=== PATIENT | male | born 1995 | race Caucasian/White ===

== ENCOUNTER 2020-06-24 14:59 | Emergency (ER) | payer OTHER ==
[2020-06-24 15:09] VITALS: BP 116/53
[2020-06-24] MEDS ORDERED: BUFFERED LIDOCAINE 10 ML SYRINGE SUBQ STA (15:15)
--- NOTE | 2020-06-24 15:17 | ED Physician Documentation ---
PD HPI UPPER EXT INJURY - Stated complaint Stated Complaint: RT HAND LAC - Chief complaint Chief Complaint: Laceration - History obtained from History obtained from: Patient - Additonal information Additional information: Left-handed gentleman who is up-to-date on tetanus accidentally cut his right hand with an ax while chopping wood at home just prior to arrival. Review of Systems Constitutional: reports: Reviewed and negative Ears: reports: Reviewed and negative GI: denies: Abdominal Pain, Nausea, Vomiting PD PAST MEDICAL HISTORY - Past Surgical History Past Surgical History: No - Present Medications Home Medications: Ambulatory Orders Medication Instructions Recorded Confirmed HYDROcod/ACETAM 5/325 [Vicodin 1 - 2 ea PO Q6H PRN #10 tablet 09/09/13 5/325] No Known Home Medications 09/09/13 09/09/13 - Allergies Allergies/Adverse Reactions: Allergies Allergy/AdvReac Type Severity Reaction Status Date / Time No Known Drug Allergies Allergy Verified 09/09/13 16:35 - Social History Does the pt smoke?: No Smoking Status: Never smoker Does the pt drink ETOH?: No Does the pt have substance abuse?: No - Immunizations Immunizations are current?: No - POLST Patient has POLST: No PD ED PE NORMAL - Vitals Vital signs reviewed: Yes - General General: Alert and oriented X 3, No acute distress - Extremities Extremities: Other (2 cm longitudinal laceration over the dorsal surface of the right first MCP just into muscle. No distal neurovascular compromise.) - Neuro Neuro: Alert and oriented X 3, Normal speech Results - Vitals Vitals: Vital Signs - 24 hr 06/24/20 15:04 Temperature 37.0 C Heart Rate 67 Respiratory 16 Rate Blood Pressure 116/53 L O2 Saturation 100 Oxygen O2 Source Room air Procedures - Laceration (location) R hand Length in cm: 2 Wound type: Linear, Into subcut fat, Into muscle Neurovascular status: Sensory intact, Motor intact, Vascular intact Anesthesia: Lidocaine 1%, With bicarb Wound Preparation: Irrigated copiously NS Skin layer closure: Nylon, Size #-0 - enter number (4-0), Sutures - enter # (5) Other: Patient tolerated well (except he got vagal, no syncope though), Tetanus UTD Complexity: Simple Departure - Departure Disposition: 01 Home, Self Care Clinical Impression: Laceration Condition: Good Record reviewed to determine appropriate education?: Yes Instructions: ED Laceration Hand Comments: Come back for any signs of infection which would include: Redness, swelling, drainage, increased pain, or fevers. You can wash it soap and water. Keep it covered and moist with bacitracin ointment which is available over the counter; avoid neosporin. Follow-up with your physician in about 14 days for suture removal.
== END 2020-06-24 15:52 | disposition home or self-care (01) ==
LOC: ED 14:59
DX: S61.411A Laceration without foreign body of right hand, initial encounter (principal); S66.921A Laceration of unspecified muscle, fascia and tendon at wrist and hand level, right hand, initial encounter; W27.0XXA Contact with workbench tool, initial encounter; Y93.89 Activity, other specified; Y92.009 Unspecified place in unspecified non-institutional (private) residence as the place of occurrence of the external cause
CPT/HCPCS: 12001; 99281; 99282

== ENCOUNTER 2023-06-05 14:49 | Emergency (ER) | payer OTHER ==
[2023-06-05] MEDS ORDERED: LIDOCAINE MPF 1%-EPI 1:200000 10 ML VIAL SUBQ STA (15:34)
[2023-06-05] MEDS ORDERED: LIDOCAINE 1%-EPI 1:100000 20 ML MDV SUBQ STA (15:42)
[2023-06-05] MEDS: TETANUS/DIPHTHERIA/PERTUSSIS 0.5 ML SYRINGE IM ONE ×2 (15:45→15:57)
[2023-06-05] MEDS ORDERED: BACITRACIN ZINC OINT 1 PACKET TOP STA (15:57)
--- NOTE | 2023-06-05 16:00 | ED Physician Documentation ---
History of Present Illness - Stated complaint Stated Complaint: RT ARM SPLINTER - Chief complaint Chief Complaint: Ext Problem - History obtained from History obtained from: Patient - History of Present Illness Timing: Today Pain level max: 3 Pain level now: 2 - Additonal information Additional information: 28-year-old male presents to the emergency department with a piece of wood in his right arm. This occurred at work, he was removing brush. Tetanus up-to-date, he states last tetanus shot was 2021. No numbness or tingling. Nothing makes it better or worse. Review of Systems Constitutional: denies: Fever PD PAST MEDICAL HISTORY - Past Medical History Past Medical History: No - Past Surgical History Past Surgical History: No - Present Medications Home Medications: Ambulatory Orders Medication Instructions Recorded Confirmed No Known Home Medications 09/09/13 06/05/23 - Allergies Allergies/Adverse Reactions: Allergies Allergy/AdvReac Type Severity Reaction Status Date / Time No Known Drug Allergies Allergy Verified 06/05/23 15:15 - Social History Does the pt smoke?: No Smoking Status: Never smoker Does the pt drink ETOH?: No Does the pt have substance abuse?: No - Immunizations Immunizations are current?: Yes Immunizations: TDAP current <10years - POLST Patient has POLST: No PD ED PE NORMAL - Vitals Vital signs reviewed: Yes - General General: Alert and oriented X 3, No acute distress - Derm Derm: Warm and dry - Extremities Extremities: Other (R forearm - 0.5x2cm piece of wood piercing the superficial forearm. NVI.) - Neuro Neuro: Alert and oriented X 3 - Psych Psych: Normal mood, Normal affect Results - Vitals Vitals: Vital Signs - 24 hr 06/05/23 06/05/23 15:10 16:08 Temperature 36.8 C Heart Rate 71 74 Respiratory 18 15 Rate Blood Pressure 139/86 H 133/78 H O2 Saturation 100 99 Oxygen O2 Source Room air Procedures - FB removal FB location: Subcutaneous FB removal preparation: Local anesthesia-specify (1% lidocaine) Removal method: Foreceps FB removal aftercare: Patient tolerated well, Removed successfully PD Medical Decision Making - ED course Complexity details: considered differential, d/w patient ED course: 28-year-old male with a wooden splinter in the right forearm. This was removed. Tolerated well, however did have a vasovagal near syncopal events when he was injected with lidocaine. Patient states that this happens to him frequently. He is otherwise asymptomatic. Recovered from this quickly. Bacitracin applied, wound cleansed and bandaged. Warnings of infection and instructions on wound care given at bedside. Also counseled on how to minimize scarring. Patient counseled regarding signs and symptoms for which I believe and urgent re- evaluation would be necessary. Patient with good understanding of and agreement to plan and is comfortable going home at this time This document was made in part using voice recognition software. While efforts are made to proofread this document, sound alike and grammatical errors may occur. Departure - Departure Disposition: Home, Self Care Clinical Impression: Soft tissues foreign body Condition: Good Instructions: ED Foreign Body Soft Tissue Removed Follow-Up: your,doctor as needed [Other] Comments: The foreign body was removed today. Please keep the wound clean. Please return if you notice redness, swelling or drainage from the wound. You can shower as normal today. Please keep the wound covered whenever you are in a dirty environment. Forms: PCP List Discharge Date/Time: 06/05/23 16:10
[2023-06-05 16:12] VITALS: BP 133/78; O2SAT 99
== END 2023-06-05 16:10 | disposition home or self-care (01) ==
LOC: ED 14:49
DX: S40.851A Superficial foreign body of right upper arm, initial encounter (principal); W45.8XXA Other foreign body or object entering through skin, initial encounter; Y93.H2 Activity, gardening and landscaping; Y99.0 Civilian activity done for income or pay; R55 Syncope and collapse
CPT/HCPCS: 1040M; 90715; 99282; 99283; A9270